=== PATIENT | female | born 1975 | race Caucasian/White ===

== ENCOUNTER → 2023-11-30 | Outpatient (CLI) | payer OTHER ==
[2023-11-30 11:23] LABS: Basophils # (auto) 0 10 ^3/uL (0-0.2); Basophils % (auto) 0.5 % (0.0-2.0); Eosinophils # (auto) 0.1 10 ^3/uL (0-0.8); Eosinophils % (auto) 1.6 % (0.0-7.0); Hematocrit 43.3 % (36.0-46.0); Hemoglobin 14.1 g/dL (12.2-16.2); Lymphocytes # (auto) 1.6 10 ^3/uL (0.4-5.4); Lymphocytes % (auto) 29.6 % (10.0-50.0); Mean Corpuscular Hemoglobin 29.7 pg (28.0-32.0); Mean Corpuscular Hgb Conc. 32.7 g/dL (32.0-36.0); Mean Corpuscular Volume 90.9 fL (80.0-100.0); Monocytes # (auto) 0.4 10 ^3/uL (0-1.3); Monocytes % (auto) 7.2 % (0.0-12.0); Neutrophils # (auto) 3.3 10 ^3/uL (1.6-8.6); Neutrophils % (auto) 61.1 % (37.0-80.0); Red Blood Cells 4.76 10^6/uL (4.0-5.20); Red Cell Distribution Width 14.2 % (11.8-14.3); White Blood Cell 5.4 10^3/uL (4.4-10.8)
[2023-11-30 11:28] LABS: Urine Bacteria NONE SEEN /hpf (None Seen); Urine Blood Negative /uL (Negative); Urine Clarity HAZY (Clear); Urine Color Yellow (Yellow); Urine Mucus FEW (None Seen); Urine Protein, UAD TRACE (Negative); Urine Specific Gravity 1.026 (1.001-1.035); Urine Urobilinogen Normal (Negative); Urine WBC 4 /hpf (0 - 5); Urine pH 6.5 (5.0-8.0)
[2023-11-30 11:51] LABS: Triglycerides 94 mg/dL (< 150)
[2023-11-30 11:52] LABS: Alanine Aminotransferase 11 U/L (7-40); Albumin 4.4 g/dL (3.2-4.8); Alkaline Phosphatase 51 U/L (46-116); Anion Gap 4 (5-15); Aspartate Aminotransferase 15 U/L (13-40); BUN/Creatinine Ratio 7.2 (10.0-20.0); Blood Urea Nitrogen 6 mg/dL (9-23); Calcium 9.4 mg/dL (8.5-10.1); Carbon Dioxide 29 mmol/L (20-30); Chloride 106 mmol/L (98-107); Cholesterol 165 mg/dL (< 200); Glucose 90 mg/dL (74-106); HDL Cholesterol 54 mg/dL (40-59); LDL Cholesterol 97 mg/dL (< 100); Potassium 4.8 mmol/L (3.5-5.1); Sodium 139 mmol/L (136-145); Total Protein 7.2 g/dL (5.7-8.2)
== END | disposition home or self-care (01) ==
LOC: LAB 10:58
PROVIDERS: ATTEND Internal Medicine
DX: Z12.11 Encounter for screening for malignant neoplasm of colon (principal)
CPT/HCPCS: 36415; 80053; 80061; 81001; 84443; 85025

== ENCOUNTER → 2023-12-07 | Outpatient (CLI) | payer OTHER | END | disposition home or self-care (01) | LOC: LAB 07:03 | PROVIDERS: ATTEND Internal Medicine | DX: Z12.11 Encounter for screening for malignant neoplasm of colon (principal) | CPT/HCPCS: 82270 ==

== ENCOUNTER 2025-04-19 15:22 | Outpatient (CLI) | payer OTHER | END 2025-04-19 17:00 | disposition home or self-care (01) | LOC: LAB 15:22 | PROVIDERS: ATTEND Radiology Diagnostic Radiology | DX: Z01.812 Encounter for preprocedural laboratory examination (principal); N63.25 Unspecified lump in the left breast, overlapping quadrants ==

== ENCOUNTER 2025-04-23 14:05 | Outpatient (CLI) | payer OTHER ==
[2025-04-23 14:21] LABS: Urine Bacteria None Seen /hpf (None Seen)
[2025-04-23 14:31] LABS: Basophils # (auto) 0 10 ^3/uL (0-0.2); Basophils % (auto) 0.4 % (0.0-2.0); Eosinophils # (auto) 0 10 ^3/uL (0-0.8); Eosinophils % (auto) 1.1 % (0.0-7.0); Hematocrit 41.1 % (36.0-46.0); Hemoglobin 13.8 g/dL (12.2-16.2); Lymphocytes # (auto) 1.6 10 ^3/uL (0.4-5.4); Lymphocytes % (auto) 37.2 % (10.0-50.0); Mean Corpuscular Hemoglobin 29.7 pg (28.0-32.0); Mean Corpuscular Hgb Conc. 33.5 g/dL (32.0-36.0); Mean Corpuscular Volume 88.6 fL (80.0-100.0); Monocytes # (auto) 0.3 10 ^3/uL (0-1.3); Monocytes % (auto) 6.8 % (0.0-12.0); Neutrophils # (auto) 2.4 10 ^3/uL (1.6-8.6); Neutrophils % (auto) 54.5 % (37.0-80.0); Nucleated Red Blood Cells % 0.1 %; Platelet Count (auto) 168 10^3/uL (140-450); Red Blood Cells 4.64 10^6/uL (4.0-5.20); Red Cell Distribution Width 13.5 % (11.8-14.3); White Blood Cell 4.3 10^3/uL (4.4-10.8)
[2025-04-23 14:42] LABS: Urine Blood Negative /uL (Negative); Urine Clarity Clear (Clear); Urine Color Colorless (Yellow); Urine Protein, UAD Negative (Negative); Urine Specific Gravity 1.005 (1.001-1.035); Urine Squamous Epithelial Cell FEW /hpf (<5); Urine Urobilinogen Normal (Negative); Urine WBC < 1 /HPF (0-5); Urine pH 6.5 (5.0-9.0)
[2025-04-23 14:53] LABS: Alanine Aminotransferase 23 U/L (7-40); Albumin 4.8 g/dL (3.2-4.8); Alkaline Phosphatase 78 U/L (46-116); Anion Gap 8 (5-15); Aspartate Aminotransferase 19 U/L (13-40); BUN/Creatinine Ratio 10.8 (10.0-20.0); Bilirubin, Total 0.8 mg/dL (0.2-1.0); Blood Urea Nitrogen 9 mg/dL (9-23); Calcium 10.2 mg/dL (8.7-10.4); Carbon Dioxide 29 mmol/L (20-31); Chloride 105 mmol/L (98-107); Cholesterol 193 mg/dL (< 200); Glucose 83 mg/dL (74-106); Potassium 4.2 mmol/L (3.5-5.1); Sodium 142 mmol/L (136-145); Total Protein 7.8 g/dL (5.7-8.2); Triglycerides 77 mg/dL (< 150)
[2025-04-23 14:54] LABS: HDL Cholesterol 69 mg/dL (40-59); LDL Cholesterol 110 mg/dL (< 100)
[2025-04-24 06:06] LABS: Complement C3 96 mg/dL (82-167); Rheumatoid Arthritis Factor <10.0 IU/mL (<14.0)
[2025-04-24 08:07] LABS: Thyroid Peroxidase (TPO) Ab 10 IU/mL (0-34)
[2025-04-25 13:07] LABS: Actin (Smooth Muscle) Antibody 7 Units (0-19); Mitochondrial (M2) Antibody <20.0 Units (0.0-20.0)
[2025-04-25 15:07] LABS: Anti-Nuclear Antibody Direct Negative (Negative); Anti-dsDNA Antibody <1 IU/mL (0-9); Antiscleroderma-70 Antibody <0.2 AI (0.0-0.9); RNP Antibody <0.2 AI (0.0-0.9); Sjogren's Anti-SS-A Antibody <0.2 AI (0.0-0.9); Sjogren's Anti-SS-B Antibody <0.2 AI (0.0-0.9); Smith Antibody <0.2 AI (0.0-0.9)
[2025-04-26 10:07] LABS: Antiparietal Cell Antibody 3.9 Units (0.0-20.0)
[2025-04-26 12:07] LABS: Anti-Striated Muscle Antibody Negative (Neg:<1:100)
== END 2025-04-23 17:00 | disposition home or self-care (01) ==
LOC: LAB 14:05
PROVIDERS: ATTEND Internal Medicine
DX: R10.9 Unspecified abdominal pain (principal); Z12.11 Encounter for screening for malignant neoplasm of colon; Z00.00 Encounter for general adult medical examination without abnormal findings
CPT/HCPCS: 36415; 80053; 80061; 81001; 83036; 84443; 85025; 86160; 86225; 86235; 86376; 86431

== ENCOUNTER 2025-04-30 11:03 | Outpatient (CLI) | payer OTHER ==
[2025-05-03 10:53] LABS: Chloride 107 mmol/L (98-107); Potassium 4.4 mmol/L (3.5-5.1); Sodium 144 mmol/L (136-145)
[2025-05-03 10:54] LABS: Anion Gap 7 (5-15); Carbon Dioxide 30 mmol/L (20-31)
[2025-05-03 10:55] LABS: Calcium 10.1 mg/dL (8.7-10.4)
[2025-05-03 10:59] LABS: BUN/Creatinine Ratio 13.4 (10.0-20.0); Blood Urea Nitrogen 11 mg/dL (9-23); Glucose 89 mg/dL (74-106)
== END 2025-04-30 17:00 | disposition home or self-care (01) ==
LOC: LAB 11:03
PROVIDERS: ATTEND Internal Medicine
DX: Z12.11 Encounter for screening for malignant neoplasm of colon (principal); R10.9 Unspecified abdominal pain; Z00.00 Encounter for general adult medical examination without abnormal findings
CPT/HCPCS: 36415; 80048; 82270

== ENCOUNTER → 2025-07-19 | Outpatient (CLI) | payer OTHER ==
[2025-07-19 11:23] LABS: Hematocrit 44.6 % (36.0-46.0); Hemoglobin 14.7 g/dL (12.2-16.2); Mean Corpuscular Hemoglobin 29.6 pg (28.0-32.0); Mean Corpuscular Volume 89.9 fL (80.0-100.0); Nucleated Red Blood Cells % 0.1 %
== END | disposition home or self-care (01) ==
LOC: LAB 10:56
PROVIDERS: ATTEND Obstetrics & Gynecology
DX: R10.2 Pelvic and perineal pain (principal)
CPT/HCPCS: 36415; 82670; 83001; 83735; 84403; 84443; 85025; 86304

== ENCOUNTER 2025-09-07 09:05 | Day surgery (SDC) | payer OTHER ==
[2025-09-04 14:21] LABS: Hematocrit 43.9 % (36.0-46.0); Hemoglobin 14.4 g/dL (12.2-16.2); Mean Corpuscular Hemoglobin 28.9 pg (28.0-32.0); Mean Corpuscular Volume 88.0 fL (80.0-100.0); Nucleated Red Blood Cells % 0.1 %
[2025-09-04 14:35] LABS: INR 0.99 (0.9-1.15); Partial Thromboplastin Time 29.6 SEC (24.5-34.5); Prothrombin Time 10.5 sec (9.3-11.8)
[2025-09-04 14:53] LABS: Alanine Aminotransferase 23 U/L (7-40); Albumin 4.7 g/dL (3.2-4.8); Alkaline Phosphatase 80 U/L (46-116); Anion Gap 9 (5-15); BUN/Creatinine Ratio 12.5 (10.0-20.0); Bilirubin, Total 0.7 mg/dL (0.2-1.0); Blood Urea Nitrogen 10 mg/dL (9-23); Calcium 10.2 mg/dL (8.7-10.4); Carbon Dioxide 30 mmol/L (20-31); Chloride 103 mmol/L (98-107); Glucose 86 mg/dL (74-106); Potassium 4.3 mmol/L (3.5-5.1); Sodium 142 mmol/L (136-145); Total Protein 8.1 g/dL (5.7-8.2)
[~2025-09-07] VITALS: Ht 160 cm; Wt 52.2 kg
[2025-09-07] MEDS: fentaNYL CITRATE 100 MCG/2 ML VL ONE (11:20)
[2025-09-07] MEDS: MIDAZOLAM HCL 2MG/2ML 2ml VIAL (1mg/ml) ONE (11:20)
[2025-09-07 11:47] VITALS: PULSE 61; RESP 15; TEMP 97.1; O2SAT 100
--- NOTE | 2025-09-07 11:47 | DVHNC2 ---
Procedure - PROCEDURE DATE: 09/07/2025 PROCEDURE PERFORMED BY: Shoshana Fischer MD REFERRING PROVIDER: Shakir Cali MD PROCEDURE PERFORMED: 1. Esophagogastroduodenoscopy with moderate sedation 2. Esophagogastroduodenoscopy with biopsy 3. Colonoscopy with moderate sedation 4. Colonoscopy with cold biopsy polypectomy PRE-PROCEDURE DIAGNOSIS: 1. Abdominal pain 2. Constipation 3. Family history of colon cancer 4. Colon cancer screening POSTPROCEDURE DIAGNOSIS: 1. Normal esophagus 2. Mild erosive gastritis 3. Normal duodenum to the 3rd portion biopsies taken 4. Internal hemorrhoids 5. Transverse colon polyp 3 mm INDICATIONS FOR PROCEDURE: THE PATIENT IS A 50-YEAR-OLD FEMALE WHO PRESENTS FOR OUTPATIENT ENDOSCOPY AND COLONOSCOPY FOR ABDOMINAL PAIN, CONSTIPATION, AND A FAMILY HISTORY OF COLON CANCER MEDICATIONS USED: 5mg of Versed IV and 50 mcg of fentanyl IV DETAILS OF THE PROCEDURE: Informed consent was obtained after risks benefits and alternatives were discussed at length with the patient. The patient gave consent to the procedure as well as the medication used for sedation. The patient was placed in left lateral decubitus position. An Olympus endoscope was inserted into the oropharynx advanced into the esophagus then into the stomach then into the duodenal bulb and duodenum. The duodenal bulb and duodenum were normal biopsies were taken given the patient's abdominal pain. The scope was then withdrawn the patient had mild erosive gastritis biopsies were taken. Retroflexion showed no abnormalities. The scope was then withdrawn. The esophagus was normal. The Z-line was at 39 cm. The scope was then withdrawn and the procedure completed. The patient tolerated the procedure well. Patient remained in the left lateral decubitus position. Digital rectal exam showed internal hemorrhoids. An Olympus variable torsion adult colonoscope inserted into the rectum and advanced to the cecum. The cecum was identified by the ileocecal valve and appendiceal orifice. The scope was then withdrawn. Bowel prep score of 8 was noted. There were no large polyps, masses, strictures or arteriovenous malformation seen. The patient had one small polyp in the descending colon removed with cold biopsy forceps. It measured 3 mm. The rest of the colon showed no abnormalities. Retroflexion showed internal hemorrhoids. The patient tolerated the procedure well. START TIME: 1134 CECUM TIME: 1137 END TIME: 1144 IMPRESSION: 1. Mild gastritis otherwise normal endoscopy to the 3rd portion of the duodenum 2. One small colon polyp and internal hemorrhoids in the setting with a family history of colon cancer and constipation RECOMMENDATIONS: 1. Follow up in GI clinic for procedure and pathology results 2. Anti-reflux precautions 3. Proton pump inhibitor daily 4. Repeat colonoscopy in three years pending pathology unless otherwise indicated by symptoms given the patient's family history 5. High-fiber diet 6. Medical management of the hemorrhoids as indicated 7. Consider SIBO, IBS with constipation or other cause of the patient's symptoms of abdominal pain I WOULD LIKE TO THANK DR. SHAKIR CALI FOR THIS REFERRAL SHOSHANA FISCHER MD Sep 07, 2025 11:47
[2025-09-07 12:17] VITALS: BP 104/59; PULSE 74; RESP 13; O2SAT 97
== END 2025-09-07 12:37 | disposition home or self-care (01) ==
LOC: GI 09:05
PROVIDERS: ATTEND Specialist
DX: K59.00 Constipation, unspecified (principal); R10.9 Unspecified abdominal pain; D12.3 Benign neoplasm of transverse colon; K29.50 Unspecified chronic gastritis without bleeding; K31.A0 Gastric intestinal metaplasia, unspecified; Z80.0 Family history of malignant neoplasm of digestive organs; K64.8 Other hemorrhoids
CPT/HCPCS: 36415; 43239; 45380; 80053; 81025; 85025; 85610; 85730; 88305; 88313; 88342; J2250; J3010

== ENCOUNTER 2025-09-13 11:17 | Outpatient (CLI) | payer OTHER ==
--- NOTE | 2025-09-13 15:02 | DVH ---
US US GUIDANCE FOR NEEDLE PLACEME HISTORY: BREAST CYST ASPIRATION PROCEDURE: Informed consent was obtained. The patient was positioned supine on the table, and limited US was performed of the right breast. The skin overlying the biopsy site was prepped with chlorhexi dine which was allowed to dry. Time out was performed. The entry site was anesthetized with 1% lidoca ine. A 18 gauge Biopince needle was advanced into the mass on the right breast at 6-7 o clock. Multi ple core biopsy samples were obtained. A marker clip was deployed in the mass. Imaging through the bi opsy site was performed. The skin overlying the aspiraion site at 3 o clock was prepped with chlorhexidine which was allowed t o dry. Time out was performed. The entry site was anesthetized with 1% lidocaine. Then using a 22 gau ge needle, 1 mL of fluid was aspirated from the cyst at 3 o clock. The samples were sent to formalin to pathology for analysis. Imaging through the biopsy site was performed. No immediate complication was identified. FINDINGS: Solid lesion of the right breast at 6-7 o clock which was biopsied. Cystic lesion of the ri ght breast at 3 o clock which was aspirated. Intra-procedural images show the biopsy needle at the lesion. No significant post biopsy hemorrhage i s identified. IMPRESSION: Solid lesion of the right breast at 6-7 o clock which was biopsied with ultrasound guidance. Cystic lesion of the right breast at 3 o clock which was aspirated with ultrasound guidance.
--- NOTE | 2025-09-13 15:03 | DVH ---
US US GUIDANCE FOR NEEDLE PLACEME, HISTORY: BREAST CYST ASPIRATION PROCEDURE: Informed consent was obtained. The patient was positioned supine on the table, and limited ultrasound was performed of the left breast. The skin overlying the biopsy site was prepped with ch lorhexidine which was allowed to dry. Time out was performed. The entry site was anesthetized with 1% lidocaine. A 18 gauge Biopince needle was advanced into the mass. Multiple core biopsy samples were obtained using the 18 gauge biopsy needle. The samples were sent to formalin to pathology for analysi s. A marker clip was deployed in the mass. Imaging through the biopsy site was performed. No immediat e complication was identified. FINDINGS: Complex cystic/solid lesion in the left breast at 7 o clock. Intra-procedural images show t he biopsy needle at the lesion. No significant post biopsy hemorrhage is identified. IMPRESSION: Complex cystic/solid lesion in the left breast at 7 o clock which was biopsied.
== END 2025-09-13 17:00 | disposition home or self-care (01) ==
LOC: US 11:17
PROVIDERS: ATTEND Internal Medicine
DX: N60.01 Solitary cyst of right breast (principal); D24.1 Benign neoplasm of right breast; D24.2 Benign neoplasm of left breast; N63.24 Unspecified lump in the left breast, lower inner quadrant; N63.15 Unspecified lump in the right breast, overlapping quadrants; N63.13 Unspecified lump in the right breast, lower outer quadrant
CPT/HCPCS: 19000; 19083; 76942; 88305; 88341; 88342; A4648

== ENCOUNTER 2025-10-01 11:43 | Outpatient (CLI) | payer OTHER ==
[2025-10-01 12:03] LABS: Hematocrit 42.9 % (36.0-46.0); Hemoglobin 14.1 g/dL (12.2-16.2); Mean Corpuscular Hemoglobin 29.0 pg (28.0-32.0); Mean Corpuscular Volume 88.3 fL (80.0-100.0); Nucleated Red Blood Cells % 0.1 %
[2025-10-01 12:59] LABS: Follicle Stimulating Hormone 37.12 IU/L (SEE BELOW)
== END 2025-10-01 17:00 | disposition home or self-care (01) ==
LOC: LAB 11:43
PROVIDERS: ATTEND Obstetrics & Gynecology
DX: N93.9 Abnormal uterine and vaginal bleeding, unspecified (principal)
CPT/HCPCS: 36415; 82670; 83001; 83002; 84403; 85025

== ENCOUNTER 2025-10-01 20:11 | Emergency (ER) | payer OTHER ==
[~2025-10-01] VITALS: Ht 160 cm; Wt 55.8 kg
--- NOTE | 2025-10-01 20:26 | ED.PDOC ---
GI ASSESSMENT HPI Comments 50 y/o F, presents to the ED for CC of abdominal pain. 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 Patient denies diarrhea, constipation, or fever. No other symptoms or modifying factors are present at this time. Chief Complaint: Abdominal Pain Time Seen by MD: 20:20 Reviewed Notes: Nurses Notes, Medications, Allergies Allergies: Coded Allergies: NO KNOWN ALLERGIES (Unverified , 09/04/25) Home Meds No Active Prescriptions or Reported Meds Information Source: Patient Mode of Arrival: Ambulatory Timing: Hours Duration: Since onset Prehospital treatment: None Vomitus: Watery Stool: Normal Severity: Moderate Recent: None Recent Hx of: None Pain Location: Diffuse Modifying Factors: Nothing Associated sign and symptoms: Nausea, Vomiting, Abdominal Pain Past Medical History PAST MEDICAL HISTORY: Denies Surgical History: Denies all surgeries GRID OPERATOR History: Denies all GRID OPERATOR Hx Family History Family History: Unknown Social History Smoker: Non-Smoker Alcohol: Denies ETOH Use Drugs: Denies Drug Use Lives In: Home Constitutional: denies: chills, diaphoresis, fatigue, fever, malaise, sweats, weakness, others EENTM: denies: blurred vision, double vision, ear bleeding, ear discharge, ear drainage, ear pain, ear ringing, eye pain, eye redness, hearing loss, mouth pain, mouth swelling, nasal discharge, nose bleeding, nose congestion, nose pain, photophobia, tearing, throat pain, throat swelling, voice changes, others Respiratory: denies: cough, hemoptysis, orthopnea, SOB at rest, shortness of breath, SOB with excertion, stridor, wheezing, others Cardiovascular: denies: chest pain, dizzy spells, diaphoresis, Dyspnea on exertion, edema, irregular heart beat, left arm pain, lightheadedness, palpitations, PND, syncope, others Gastrointestinal: reports: abdominal pain, nausea, vomiting; denies: abdomen distended, blood streaked bowels, constipated, diarrhea, dysphagia, difficulty swallowing, hematemesis, melena, poor appetite, poor fluid intake, rectal bleeding, rectal pain, others Genitourinary: denies: abnormal vagina bleeding, burning, dyspareunia, dysuria, flank pain, frequency, hematuria, incontinence, pain, , vagina disc harge, urgency, others Neurological: denies: dizziness, fainting, headache, left sided numbness, left sided weakness, numbness, paresthesia, pre-existing deficit, right sided numbness, right sided weakness, seizure, speech problems, tingling, tremors, weakness, others Musculoskeletal: denies: back pain, gout, joint pain, joint swelling, muscle pain, muscle stiffness, neck pain, others Integumetry: denies: bruises, change in color, change in hair/nails, dryness, laceration, lesions, lumps, rash, wounds, others Allergic/Immunocompromised: denies: Difficulty Healing, Frequent Infections, Hives, Itching, others Hematologic/Lymphatic: denies: anemia, blood clots, easy bleeding, easy bruising, swollen glands, others Endocrine: denies: excessive hunger, excessive sweating, excessive thirst, excessive urination, flushing, intolerance to cold, intolerance to heat, unexplained weight gain, unexplained weight loss, others Psychiatric: denies: anxiety, bipolar disorder, depression, hopeless, panic disorder, schizophrenia, sleepless, suicidal, others All Other Systems: Reviewed and Negative Physical Exam General Appearance: No Apparent Distress, Normal HEENT: Normal ENT Inspection, Pharynx Normal Neck: Full Range of Motion, Non-Tender, Normal, Normal Inspection Respiratory: Chest Non-Tender, Lungs Clear, No Accessory Muscle Use, No Respiratory Distress, Normal Breath Sounds Cardiovascular: No Edema, No Murmur, No Gallop, Normal Peripheral Pulses, Regular Rate/Rhythm Breast Exam: Deferred Gastrointestinal: No Organomegaly, Non Tender, No Pulsatile Mass, Normal Bowel Sounds, Soft Genitalia: Deferred Pelvic: Deferred Rectal: Deferred Extremities: No calf tenderness, Normal capillary refill, Normal inspection, Normal range of motion, Non-tender, No pedal edema Musculoskeletal : Apperance: Normal Neurologic: Alert, fire alarm operator II-XII nml as Tested, No Motor Deficits, Normal Affect, Normal Mood, No Sensory Deficits Cerebellar Function: Normal Reflexes: Normal Skin: Dry, Normal Color, Warm Lymphatic: No Adenopathy Was a procedure done? Was a procedure done?: No GI differential Dx Differential Diagnosis: Gastritis/PUD, Gastroenteritis, Electrolyte Imbalance, Bacterial, Viral X-Ray, Labs, Meds, VS Vital Signs Date Time Temp Pulse Resp B/P (MAP) Pulse Ox O2 Delivery O2 Flow Rate FiO2 10/01/25 20:13 98.3 69 16 130/51 99 98.3 Lab Test 10/01/25 20:59 10/01/25 20:55 Range/Units Urine Color Colorless Yellow Urine Clarity Ex.turbid Clear Urine pH 7.0 5.0-9.0 Urine Specific [place] 1.020 1.001-1.035 Urine Protein Negative Negative Urine Ketones Negative Negative Urine Blood Negative Negative /uL Urine Nitrite Negative Negative Urine Bilirubin Negative Negative Urine Urobilinogen Normal Negative mg/dL Urine Leukocyte Esterase Negative Negative /uL Urine RBC 4 0 - 4 /hpf Urine Microscopic WBC 0-5 /HPF Urine Squamous Epithelial Cells Few <5 /hpf Urine Amorphous Crystals Many None Seen /hpf Urine Bacteria Few H None Seen /hpf Urine Glucose Normal Normal mg/dL White Blood Count 6.6 # 4.4-10.8 10^3/uL Red Blood Count 4.41 4.0-5.20 10^6/uL Hemoglobin 12.9 12.2-16.2 g/dL Hematocrit 38.9 36.0-46.0 % Mean Corpuscular Volume 88.2 80.0-100.0 fL Mean Corpuscular Hemoglobin 29.3 28.0-32.0 pg Mean Corpuscular Hemoglobin Concent 33.2 32.0-36.0 g/dL Red Cell Distribution Width 13.8 11.8-14.3 % Platelet Count 180 140-450 10^3/uL Mean Platelet Volume 9.5 6.9-10.8 fL Neutrophils (%) (Auto) 63.6 37.0-80.0 % Lymphocytes (%) (Auto) 27.0 10.0-50.0 % Monocytes (%) (Auto) 7.5 0.0-12.0 % Eosinophils (%) (Auto) 1.7 0.0-7.0 % Basophils (%) (Auto) 0.2 0.0-2.0 % Neutrophils # (Auto) 4.2 1.6-8.6 10 ^3/uL Lymphocytes # (Auto) 1.8 0.4-5.4 10 ^3/uL Monocytes # (Auto) 0.5 0-1.3 10 ^3/uL Eosinophils # (Auto) 0.1 0-0.8 10 ^3/uL Basophils # (Auto) 0 0-0.2 10 ^3/uL Nucleated Red Blood Cells 0.0 % Sodium Level 140 136-145 mmol/L Potassium Level 4.0 3.5-5.1 mmol/L Chloride Level 103 98-107 mmol/L Carbon Dioxide Level 28 20-31 mmol/L Anion Gap 9 5-15 Blood Urea Nitrogen 9 9-23 mg/dL Creatinine 0.66 0.550-1.02 mg/dL Glomerular Filtration Rate Calc 107 >90 mL/min BUN/Creatinine Ratio 13.6 10.0-20.0 Serum Glucose 94 74-106 mg/dL Calcium Level 9.4 8.7-10.4 mg/dL Total Bilirubin 0.4 0.2-1.0 mg/dL Aspartate Amino Transferase (AST) 19 13-40 U/L Alanine Aminotransferase (ALT) 24 7-40 U/L Alkaline Phosphatase 90 46-116 U/L Total Protein 7.2 5.7-8.2 g/dL Albumin 4.2 3.2-4.8 g/dL Lipase 59 H 12-53 U/L [place] [id number] Ph: [phone] DIAGNOSTIC IMAGING Diagnostic Imaging Report : [id number] Signed PATIENT: MORRIS GALVAN ACCT: [id number] UNIT: [id number] : 1975 LOC: ER ROOM / BED: / AGE / SEX: 50 / F ADM STATUS: REG ER SERVICE 43 ORDERING PHYSICIAN: KWESI SCHMIDT PROCEDURE(s): ABPL - CT AB PEL WO CON-NO ORAL OR IV REASON: abd pain ORDER NUMBER(s): [id number], ACCESSION NUMBER(s): [id number] EXAM: CT CT AB PEL WO CON-NO ORAL OR IV HISTORY: abd pain Comparison Study: US PELVIC on DOS: 08/28/25 Exam Date: 10/01/2025 08:59 PM Radiation Dose Information: CT Dose: CTDI volume is 5.6 mGy. Dose-length product is 322 mGy*cm Technique: Multidetector CT of the abdomen and pelvis was performed. Imaging was performed without IV contrast. Axial, coronal and sagittal multiplanar reformats were obtained from the axial data set by the technologist. Findings: Lack of intravenous contrast compromises evaluation of perfusion and for is odense lesions. Lower chest: Clear. Liver: Unremarkable Biliary system: Unremarkable Spleen: Unremarkable Pancreas: Unremarkable. Adrenals: Unremarkable. Kidneys and ureters: No hydronephrosis Bowel: No obstruction. Normal appendix. Bladder: Unremarkable Reproductive organs: Left adnexal /pelvic mass, better characterized on previous imaging. Lymph nodes: Unremarkable. Peritoneum: Unremarkable Vessels: Patency not evaluated on this noncontrast study. Bones and soft tissue: No aggressive osseous lesion IMPRESSION: No acute finding. ATED BY: ARUN YIP MD DICTATED DATE/TIME: 10/01/252136 SIGNED BY: ARUN YIP MD SIGNED DATE/TIME: 10/01/252136 CC: X-Ray, Labs, Meds, VS Comment Imaging was reviewed by this provider, there is no obvious pathological or acute disease process. Pending radiology review Labs were reviewed by this provider, no abnormalities Vital signs reviewed by this provider, clinically stable Time of 1ST Reevaluation: 20:50 Reevaluation 1ST: Unchanged Patient Education/Counseling: Diagnosis, Treatment, Need For Follow Up (Follow up in the emergency department the next 2-4 days if symptoms have not improved. Follow up with PCP next available appointment.) Family Education/Counseling: No Family Present SEPSIS Sepsis Screen Date sepsis recognized/suspect: Oct 01, 2025 Time Sepsis recognized/suspect: 2012 Recent Procedure: No Respiratory Rate >20: No Heart Rate >90: No Temp<36 C (96.8 F) or >38.3 C: No SBP <90 or MAP <65 mmHG: No New Acute Mental Status Change: No Is the patient on CPAP, BIPAP,: No Physician Orders Ct Ab Pel Wo Con-No Oral Or Iv (10/01/25 20:44) Vital Signs Date Time Temp Pulse Resp B/P (MAP) Pulse Ox O2 Delivery O2 Flow Rate FiO2 10/01/25 20:13 98.3 69 16 130/51 99 98.3 Laboratory Tests Test 10/01/25 20:55 White Blood Count 6.6 10^3/uL (4.4-10.8) # Departure 1 Departure Time of Disposition: 21:59 Impression: Primary Impression: Gastritis Qualified Codes: K29.00 - Acute gastritis without bleeding Disposition: HOME / SELF CARE / HOMELESS Condition: Stable e-Prescriptions No Active Prescriptions or Reported Meds Discharged With: Self Critical Care Note Critical Care Time?: No Stability Stability form required: No Heart Score Heart Score: Heart Score Response (Comments) Value History N/A 0 EKG N/A 0 Age N/A 0 Risk Factors N/A 0 Troponin N/A 0 Total 0 I personally scribed for MCKEON*,CHRISTOPHER E INTELLIGENCE CONSULTANT ([place]) on 10/01/25 at 20:26. Electronically submitted by Odalys Carranza ([employer]). I personally scribed for MCKEON*,CHRISTOPHER E INTELLIGENCE CONSULTANT ([place]) on 10/01/25 at 20:45. Electronically submitted by Odalys Carranza ([employer]). I personally scribed for MCKEON*,CHRISTOPHER E INTELLIGENCE CONSULTANT ([place]) on 10/01/25 at 21:55. Electronically submitted by Odalys Carranza ([employer]). MCKEON*,CHRISTOPHER E INTELLIGENCE CONSULTANT Oct 01, 2025 20:26
[2025-10-01 21:05] LABS: Hematocrit 38.9 % (36.0-46.0); Hemoglobin 12.9 g/dL (12.2-16.2); Mean Corpuscular Hemoglobin 29.3 pg (28.0-32.0); Mean Corpuscular Volume 88.2 fL (80.0-100.0); Nucleated Red Blood Cells % 0.0 %
[2025-10-01 21:17] LABS: Alanine Aminotransferase 24 U/L (7-40); Alkaline Phosphatase 90 U/L (46-116); Anion Gap 9 (5-15); Calcium 9.4 mg/dL (8.7-10.4); Carbon Dioxide 28 mmol/L (20-31); Chloride 103 mmol/L (98-107); Glucose 94 mg/dL (74-106); Potassium 4.0 mmol/L (3.5-5.1); Sodium 140 mmol/L (136-145)
[2025-10-01 21:18] LABS: Albumin 4.2 g/dL (3.2-4.8); BUN/Creatinine Ratio 13.6 (10.0-20.0); Bilirubin, Total 0.4 mg/dL (0.2-1.0); Total Protein 7.2 g/dL (5.7-8.2)
[2025-10-01 21:38] LABS: Urine Amorphous Crystal MANY /hpf (None Seen); Urine Protein, UAD Negative (Negative)
--- NOTE | 2025-10-01 21:39 | DVH ---
EXAM: CT CT AB PEL WO CON-NO ORAL OR IV HISTORY: abd pain Comparison Study: US PELVIC on DOS: 08/28/25 Exam Date: 10/01/2025 08:59 PM Radiation Dose Information: CT Dose: CTDI volume is 5.6 mGy. Dose-length product is 322 mGy*cm Technique: Multidetector CT of the abdomen and pelvis was performed. Imaging was performed without IV contrast. Axial, coronal and sagittal multiplanar reformats were obtained from the axial data set by the technologist. Findings: Lack of intravenous contrast compromises evaluation of perfusion and for isodense lesions. Lower chest: Clear. Liver: Unremarkable Biliary system: Unremarkable Spleen: Unremarkable Pancreas: Unremarkable. Adrenals: Unremarkable. Kidneys and ureters: No hydronephrosis Bowel: No obstruction. Normal appendix. Bladder: Unremarkable Reproductive organs: Left adnexal /pelvic mass, better characterized on previous imaging. Lymph nodes: Unremarkable. Peritoneum: Unremarkable Vessels: Patency not evaluated on this noncontrast study. Bones and soft tissue: No aggressive osseous lesion IMPRESSION: No acute finding.
[2025-10-01 21:44] LABS: Blood Urea Nitrogen 9 mg/dL (9-23); Lipase 59 U/L (12-53)
[2025-10-01 22:02] VITALS: PULSE 67; RESP 20; O2SAT 97
[2025-10-01 22:12] VITALS: BP 113/66; PULSE 67; RESP 20; TEMP 98.2; O2SAT 97
[2025-10-01] MEDS: LIDOCAINE VISCOUS 2% 15ML UD MT ONE (22:15)
[2025-10-01] MEDS: MAALOX PLUS or MAALOX 30 ML PO ONE (22:16)
[2025-10-01] MEDS: KETOROLAC TROMETH 30 MG/ML 1ML VIAL IM ONE (23:15)
== END 2025-10-01 23:18 | disposition home or self-care (01) ==
LOC: ER 20:11
DX: K29.70 Gastritis, unspecified, without bleeding (principal)
CPT/HCPCS: 36415; 74176; 80053; 81001; 83690; 85025; 96372; 99285; J1885